=== PATIENT | male | born 1970 | race Caucasian/White ===

== ENCOUNTER 2017-10-24 16:34 | Emergency (ER) | payer OTHER ==
[~2017-10-24] VITALS: Ht 172.7 cm; Wt 104.3 kg
[~2017-10-24 16:34] MED LIST: ADDERALL 30 MG30 MG PO; IBUPROFEN 800800 M1 PO
[2017-10-24] MEDS ORDERED: ROBAXIN 750 MG750 M1 PO (17:05)
[2017-10-24] MEDS ORDERED: TORADOL 10 MG T10 MG PO (17:05)
[2017-10-24] MEDS ORDERED: HYDROCODONE-AP1 EAC6 PO (17:05)
[2017-10-24 17:44] VITALS: BP 140/97
== END 2017-10-24 17:44 | disposition home or self-care (01) ==
LOC: M.ERS 16:34
DX: M54.5 Low back pain (principal)